=== PATIENT | female | born 1970 | race Caucasian/White ===

== ENCOUNTER 2019-02-28 22:10 | Emergency (ER) | payer BC ==
[2019-02-28 22:31] VITALS: BP 128/74; PULSE 92
[2019-02-28] MEDS ORDERED: Ketorolac 60 MG/2 ML SDV IM ONE (22:44)
[2019-02-28] MEDS ORDERED: oxyCODONE ER 10 MG TAB.ER PO ONE (22:45)
--- NOTE | 2019-02-28 22:52 | EDM.PDOC ---
ED HPI GENERAL MEDICAL PROBLEM - General Chief Complaint: Upper Extremity Injury/Pain Stated Complaint: LEFT ARM INJURY Time Seen by Provider: 02/28/19 22:40 Source of Information: Reports: Patient - History of Present Illness INITIAL COMMENTS - FREE TEXT/NARRATIVE: The patient is a 48-year-old female who presents to the ER secondary to left shoulder pain. The patient slipped on the ice and use her left arm to grab her truck to keep from falling. She continued to slip and fall while holding onto the truck and then she eventually fell down. She never landed on her arm, but the left shoulder is very painful in the left trapezius area. Holding her arm in adduction and internal rotation feels best. She has not taking anything for pain. left arm/shoulder Pain Score (Numeric/FACES): 5 - Related Data Allergies Allergy/AdvReac Type Severity Reaction Status Date / Time No Known Allergies Allergy Verified 02/28/19 22:28 Home Meds: Home Meds . 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 Hematologic History: Reports: None Immunologic History: Reports: None Oncologic (Cancer) History: Reports: None Dermatologic History: Reports: None - Infectious Disease History Infectious Disease History: Reports: None - Past Surgical History Head Surgeries/Procedures: Reports: None Musculoskeletal Surgical History: Reports: Other (See Below) Other Musculoskeletal Surgeries/Procedures:: Hip Surgery Social & Family History - Family History Family Medical History: Noncontributory - Tobacco Use Smoking Status *Q: Current Every Day Smoker Years of Tobacco use: 30 Packs/Tins Daily: 1 - Caffeine Use Caffeine Use: Reports: Energy Drinks - Recreational Drug Use Recreational Drug Use: No Review of Systems - Review of Systems Review Of Systems: See Below (Positive for right shoulder injury) Musculoskeletal: Reports: Shoulder Pain ED EXAM, GENERAL - Physical Exam Exam: See Below Free Text/Narrative:: Constitutional: Appears uncomfortable holding her arm in adduction and internal rotation, Non-toxic appearance. HEENT: Normocephalic, Atraumatic, EOMI Neck: Normal range of motion, No stridor, trachea midline Respiratory: No respiratory distress, No tachypnea Cardiovascular: Deferred Gastrointestinal: Deferred Genital / Urinary: Deferred Musculoskeletal: All four extremities present and atraumatic, tender along the left trapezius and left proximal shoulder, there is painful range of motion but it is intact with no subluxation noted, no dislocation, still extremity is unremarkable Back: FROM Integument: Warm, Dry, Color is ethnicity appropriate, No rash. Neuro: Alert, Awake, No focal deficits noted Psych: Affect, Judgement, mood normal Course - Vital Signs Text/Narrative:: History and exam are consistent with a left shoulder strain/injury without any osseous injury. No x-rays are indicated at this time. The patient was given a sling and she will be given 1 dose of Toradol 60 mg IM as well as 1 OxyContin 10 mg extended release tablet in the ER but no prescriptions. Conservative instructions will be provided along with orthopedic follow-up. Last Recorded V/S: Last Vital Signs Temp 36.6 C 02/28/19 22:25 Pulse 92 02/28/19 22:25 Resp 18 02/28/19 22:25 BP 128/74 02/28/19 22:25 Pulse Ox 98 02/28/19 22:25 - Orders/Labs/Meds Orders: Active Orders 24 hr Category Date Time Status Ketorolac [Toradol] Med 02/28/19 22:44 Once 60 mg IM ONETIME ONE oxyCODONE ER [OxyCONTIN] Med 02/28/19 22:45 Once 10 mg PO ONETIME ONE Medication Orders Oxycodone HCl (Oxycontin) 10 mg PO ONETIME ONE Stop: 02/28/19 22:46 Meds: Medications Generic Name Dose Route Start Last Admin Trade Name Freq PRN Reason Stop Dose Admin Oxycodone HCl 10 mg 02/28/19 22:45 Oxycontin PO 02/28/19 22:46 ONETIME ONE Departure - Departure Time of Disposition: 22:51 Disposition: Home, Self-Care 01 Clinical Impression: Impingement syndrome, shoulder, left - Discharge Information Instructions: How to Use a Sling, [id number], Shoulder Pain, [id number] Referrals: Martha Larson [employer]IM[employer] CARETAKER [Primary Care Provider] - Additional Instructions: Use lots of ice as we discussed Gentle shoulder motion exercises as we discussed Use a combination of ibuprofen 800 mg and Tylenol 1000 mg together every 6 hours as needed for pain Follow-up with orthopedics Sepsis Event Note - Evaluation Sepsis Screening Result: No Definite Risk - Focused Exam Vital Signs: Vital Signs Temp Pulse Resp BP Pulse Ox 02/28/19 22:25 36.6 C 92 18 128/74 98 Date Exam was Performed: 02/28/19 Time Exam was Performed: 22:46 - My Orders Last 24 Hours: My Active Orders 02/28/19 22:44 Ketorolac [Toradol] 60 mg IM ONETIME ONE 02/28/19 22:45 oxyCODONE ER [OxyCONTIN] 10 mg PO ONETIME ONE - Assessment/Plan Last 24 Hours: My Active Orders 02/28/19 22:44 Ketorolac [Toradol] 60 mg IM ONETIME ONE 02/28/19 22:45 oxyCODONE ER [OxyCONTIN] 10 mg PO ONETIME ONE
== END 2019-02-28 23:11 | disposition home or self-care (01) ==
LOC: MW.ED 22:10
DX: M75.42 Impingement syndrome of left shoulder (principal); F17.210 Nicotine dependence, cigarettes, uncomplicated
CPT/HCPCS: 96372; 99283; A9270; J1885

== ENCOUNTER 2021-07-05 11:58 | Emergency (ER) | payer BC, OTHER ==
[2021-07-05] MEDS ORDERED: Lidocaine 2% Viscous Solution 15 ML UD PO ONE (12:21)
[2021-07-05] MEDS ORDERED: Benzocaine 20% Topical Spray UD MUCMEM ONE (12:21)
[2021-07-05 12:27] VITALS: BP 146/85; PULSE 84
== END 2021-07-05 12:48 | disposition home or self-care (01) ==
LOC: MW.ED 11:58
DX: K04.7 Periapical abscess without sinus (principal)
CPT/HCPCS: 99282; A9270

== ENCOUNTER 2021-08-03 08:39 | Emergency (ER) | payer OTHER ==
[2021-08-03] MEDS ORDERED: Ondansetron 4 MG/2 ML SDV ONE (08:52)
[2021-08-03] MEDS ORDERED: Sodium Chloride 0.9% 1,000 ML IV ONE (09:18)
[2021-08-03] MEDS ORDERED: Ondansetron 4 MG/2 ML SDV IVPUSH ONE (09:18)
[2021-08-03 09:41] LABS: BLOOD UREA NITROGEN,BUN 20 mg/dL (7.0-18.0); CARBON DIOXIDE,CO2 23.8 mmol/L (21.0-32.0); CHLORIDE,CL 101 mmol/L (98-107); GLUCOSE RANDOM 188 mg/dL (74-106); LIPASE 137 U/L (73-393); SODIUM,NA 137 mmol/L (136-145)
[2021-08-03 09:46] LABS: ESTIMATED GFR 62 mL/min (>60)
[2021-08-03 10:02] LABS: CORONAVIRUS COVID-19 NAA NEGATIVE (NEGATIVE); INFLUENZA A NAA NEGATIVE (NEGATIVE); INFLUENZA B NAA NEGATIVE (NEGATIVE)
[2021-08-03] MEDS ORDERED: Iopamidol 755 MG/ML 500 ML Multipack Bottle IVPUSH STA (10:55)
[2021-08-03 11:56] VITALS: BP 129/90; PULSE 78
== END 2021-08-03 11:58 | disposition home or self-care (01) ==
LOC: MW.ED 08:39
DX: R07.9 Chest pain, unspecified (principal); R11.2 Nausea with vomiting, unspecified; R19.7 Diarrhea, unspecified; Z20.822 Contact with and (suspected) exposure to COVID-19
CPT/HCPCS: 0240U; 36415; 71045; 71275; 74177; 80053; 83690; 83735; 84484; 84703; 85025; 85379; 96361; 96374; 99285; J2405; J7030; Q9967

== ENCOUNTER 2021-12-26 12:21 | Emergency (ER) | payer OTHER ==
[2021-12-26 17:39] VITALS: BP 133/85; PULSE 79
== END 2021-12-26 17:39 | disposition home or self-care (01) ==
LOC: MW.ED 12:21
DX: S46.911A Strain of unspecified muscle, fascia and tendon at shoulder and upper arm level, right arm, initial encounter (principal); S29.012A Strain of muscle and tendon of back wall of thorax, initial encounter; S66.912A Strain of unspecified muscle, fascia and tendon at wrist and hand level, left hand, initial encounter; V49.9XXA Car occupant (driver) (passenger) injured in unspecified traffic accident, initial encounter; Y92.410 Unspecified street and highway as the place of occurrence of the external cause
CPT/HCPCS: 72125; 72125-26; 72128; 72128-26; 73030-26-RT; 73030-RT; 73130-26-LT; 73130-LT; 99284